=== PATIENT | female | born 2000 | race Caucasian/White ===

== ENCOUNTER 2023-08-31 20:56 | Emergency (ER) | payer OTHER, SELFPAY ==
[2023-08-31 21:00] VITALS: BMI 18.3
[2023-08-31 21:09] VITALS: BP 137/81
[2023-08-31 21:10] VITALS: BP 137/87
--- NOTE | 2023-08-31 21:13 | ED.GENMED ---
History of Present Illness
General
Chief Complaint: Substance Abuse
Source: patient and police
Exam Limitations: none
Time Seen by Provider: 08/31/23 21:03
Nursing documentation reviewed up to this point in time: agreed with
Travel History
Have you had any contact with someone who has COVID-19?: No
Do you have any symptoms of coronavirus? Fever > 100 degrees, chills, cough, shortness of breath, sore throat, loss of taste or smell, muscle aches, or headache?: No
History of Present Illness
History of Present Illness:
23-year-old female with past medical history of polysubstance use presents to the emergency room from [facility] for evaluation of opioid withdrawal. Patient reports that her last use of heroin was 12 AM�21 hours prior to presentation. She says she
has also occasionally used cocaine and did use some cocaine last night as well. She primarily injects. She says that today she started to experience severe withdrawal symptoms including chills, shakes, diarrhea, rhinorrhea, anxiety, nausea.
Brought to the emergency room for assessment. She says she has had success with buprenorphine in the past�she says that she was previously 6 months clean.
Review of Systems
Review of Systems
All Other Systems: ROS reviewed and negative except as documented in HPI and ROS
Constitutional: Reports chills; Denies fever
EENT: Reports runny nose; Denies sore throat
Respiratory: Denies cough or trouble breathing
Cardiac: Denies chest pain or palpitations
ABD/GI: Reports nausea and diarrhea; Denies abdominal pain
: Denies flank pain
Musculoskeletal: Reports muscle pain (Myalgias); Denies neck pain or back pain
Neurological: Reports headache; Denies weakness or numbness
Psychiatric: Reports anxiety
Phy Exam
Physical Exam
Physical Exam:
General: Awake, alert, anxious appearing
Head: Normocephalic, atraumatic
Eyes: Conjunctiva normal, pupils equal round and reactive to light bilaterally
Nose: Copious rhinorrhea
Throat: Airway intact, handling secretions
Neck: Trachea midline, supple without meningismus
Lungs: Clear to auscultation bilaterally, no wheezing, rales, rhonchi
Heart: Regular rate and rhythm, no murmurs, gallops, or rubs
Abd: Soft, non distended, nontender
Neuro: Cranial nerves grossly intact, speech fluid
Skin: Piloerection; track dowd on the neck and the arms
Extremities: Warm and well-perfused
Scores
COW Clinical Opiate Withdrawal Scale
Resting Pulse Rate: 80 or below
Sweating-over past 30min not from room temp or activity: Flushed or observable moistness on face
Restlessness-observation during assessment: Reports difficulty sittin
Pupil Size: Pupils possibly larger than normal for room light
Bone or Joint Aches: Mild diffuse discomfort
Runny Nose or Tearing-not accounted for by cold/allergies: Nose running or tearing
GI Upset-over last 30min: Nausea or loose stool
Tremor-observation of outstretched hands: Tremor can be felt, but not observed
Yawning-observation during assessment: No yawning
Anxiety or Irritability: Patient reports increasing irritability or anxiousness
Gooseflesh Skin: Piloerrection of skin can be felt or hairs standing up on arms
Score: 14
Withdrawal Severity: Moderate Withdrawal, consider starting Suboxone
Heart Failure Risk
Heart Failure Risk Score: Not Applicable
Heart Score for Chest Pain Patients
STEMI patient?: Not applicable
Withdrawal Assessment of Alcohol
Withdrawal Assessment Completed?: Not applicable
Course
Orders/Labs/Results
Orders:
Orders
08/31/23 21:10
Drug Screen, Urine [Urine Drug Abuse Screen] Urgent
0.9% Sodium Chloride 1000 ml [Nss] 1,000 ml IV BOLUS
Buprenorphine [Subutex] 4 mg SL NOW ONE
Ondansetron Injectable [Zofran] 4 mg IV NOW STA
Test Result ONCE
08/31/23 22:46
Alcohol Urgent
Complete Blood Count/With Diff Urgent
Comprehensive Metabolic Panel Urgent
HCG, Serum Qualitative Screen Urgent
08/31/23 23:29
Buprenorphine [Subutex] 4 mg SL NOW ONE
Abnormal Lab Results
08/31/23
22:46
WBC 14.0 H 10^3/uL
(4.8-10.8)
RBC 3.97 L 10^6/uL
(4.20-5.40)
Hgb 11.9 L g/dL
(12.0-16.0)
Hct 34.1 L %
(37.0-47.0)
Abs Immat Gran (auto) 0.1 H 10^3/uL
(0-0.05)
Absolute Neuts (auto) 12.8 H 10^3/uL
(1.4-6.5)
Absolute Lymphs (auto) 1.0 L 10^3/uL
(1.2-3.4)
Neutrophils % 91.4 H %
(42.2-75.2)
Lymphocytes % 7.0 L %
(20.5-51.1)
Monocytes % 1.1 L %
(1.7-9.3)
BUN 18 H mg/dl
(7-17)
Glucose 126 H mg/dl
(70-99)
Calcium 10.6 H mg/dl
(8.4-10.2)
Total Protein 8.3 H g/dl
(6.3-8.2)
08/31/23 22:46
08/31/23 22:46
Vital Signs
Initial and Last Documented VS:
Initial Vital Signs
Temp Pulse Resp BP Pulse Ox
35.8 C L 54 16 137/81 100
08/31/23 21:08/31/23 21:09 08/31/23 21:09 08/31/23 21:09 08/31/23 21:09
Last Documented Vital Signs
Temp Pulse Resp BP Pulse Ox
35.8 C L 54 16 137/87 100
08/31/23 21:09 08/31/23 21:09 08/31/23 21:09 08/31/23 21:10 08/31/23 22:30
MDM/Problems Addressed
Differential Diagnosis Includes:
Opioid withdrawal
MDM/Problems Addressed:
23-year-old female presents from [facility] for opioid withdrawal�last used heroin 21 hours prior to presentation. Very mildly hypothermic and bradycardic. Vital signs otherwise normal. Exam as above. Consistent with opioid withdrawal. COWS score
14. Will start on Suboxone. Will send basic labs. Zofran for nausea. Provide IV fluids. Discussed with [facility]�if withdrawal can be managed here will coordinate with [facility] for further management.
Labs reviewed: CBC shows leukocytosis likely reactive with recent nausea and vomiting. CMP unremarkable. hCG negative. Clinical reassessment patient symptoms improved but still having some mild opiate withdrawal symptoms. Provide an additional
dose of buprenorphine here.
Clinical reassessment after medications patient is feeling much better. She is sleeping comfortably. COWS score 0. Stable for discharge. I spoke with the nurse at the [facility] will write a prescription for buprenorphine which they can continue at
[facility]. Patient comfortable with this plan. Spoke about return precautions all questions answered.
Chronic conditions affecting care:
Opioid use
*Pulse Oximetry
Patient hypoxic: no
*Critical Care Note
Total Time (30-74mins, 75-104mins- exclusive of procedures): Not Applicable
Data Reviewed
Source: patient and police
Patient Management
Discussion with other providers: Other ([facility])
ED Attending Note
-
Portions of this chart may have been created with voice recognition software.� Occasional wrong word or��sound alike� substitutions may have occurred due to the inherent limitations of voice recognition software.
Discharge Plan
Departure
Patient Disposition: Home (Routine Discharge)
Date of Disposition: 08/31/23
Time of Disposition: 23:27
Patient with high blood pressure during this ER visit?: No
Discharge Problem:
Opioid withdrawal
Instructions: Opioid use disorder
Prescriptions:
New
buprenorphine HCl 8 mg tablet, sublingual
8 mg sublingual BID Qty: 14 0RF
Referrals:
[facility] [Family Provider] - Tomorrow
Activity Restrictions/Additional Instructions:
Thank you for visiting the Emergency Department at [facility].
1. Please schedule a follow up appointment as directed. Call first thing tomorrow morning to make an appointment.
2. If indicated, please take your medications as instructed and indicated on discharge paperwork.
3. If any of your symptoms do not improve, or persist, or become more severe within 6-12 hours, please return to the emergency department for further care.
4. Please return to the emergency department if you develop a headache, neck pain/stiffness, fever greater than 100.4F, chest pain, shortness of breath, persistent nausea, vomiting, slurred speech, difficulty walking, numbness/tingling, weakness,
signs of infection or any other symptoms that are worrisome to you.
Please call [phone] if you have any questions.
Interventions
Interventions:
*Risk Screen - Suicide Last Done: 08/31/23 21:00
*General Assessment Last Done: 08/31/23 21:00
*Neglect/Abuse Screening Last Done: 08/31/23 21:00
ED- Fall Risk Assessment Last Done: 08/31/23 21:00
*ED COVID-19 Vaccine History Last Done: 08/31/23 21:00
ED-Psychological Assessment Last Done: 08/31/23 21:12
Discharge Date and Time
Print Language: [email or web address]
[2023-08-31] MEDS: SUBUTEX 4 MG SL ×2 (22:42→23:49)
[2023-08-31] MEDS: ZOFRAN 4 MG IV (22:42)
[2023-08-31] MEDS: NSS 1000 IV (22:43)
[2023-08-31 22:53] LABS: % Basophils 0.1 % (0-2); % Immature Granulocytes 0.4 % (0-0.5); % Monocytes 1.1 % (1.7-9.3); % Neutrophils 91.4 % (42.2-75.2); Absolute Immature Granulocytes 0.1 10^3/uL (0-0.05); Absolute Monocytes 0.2 10^3/uL (0.1-0.6); Absolute Neutrophils 12.8 10^3/uL (1.4-6.5); Hematocrit 34.1 % (37.0-47.0); Hemoglobin 11.9 g/dL (12.0-16.0); Mean Corp Hgb Conc. 34.9 g/dL (33.0-37.0); Mean Corpuscular Volume 85.9 fL (81.0-99.0); Nucleated Red Blood Cells % 0 %; Platelet Count 321 10^3/uL (130-400); Red Blood Cell Count 3.97 10^6/uL (4.20-5.40); Red Cell Dist. Width 13.7 % (11.5-14.5)
[2023-08-31 23:08] LABS: HCG, Serum Qualitative Screen Negative
[2023-08-31 23:11] LABS: ALT (SGPT) 17 U/L (0-35); AST (SGOT) 29 U/L (14-36); Albumin 4.6 g/dl (3.5-5.0); Alkaline Phosphatase 122 U/L (38-126); Blood Urea Nitrogen 18 mg/dl (7-17); Calcium 10.6 mg/dl (8.4-10.2); Carbon Dioxide 28 mmol/L (22-30); Chloride 101 mmol/L (98-107); Estimated Creatinine Clearance 93 ml/min; Glucose 126 mg/dl (70-99); Sodium 138 mmol/L (135-145); Total Bilirubin 0.4 mg/dl (0.2-1.3); Total Protein 8.3 g/dl (6.3-8.2); eGFR > 60.00
[2023-08-31 23:13] LABS: Alcohol None Detected
[2023-09-01 00:18] VITALS: BP 127/72
== END 2023-09-01 00:23 | disposition home or self-care (01) ==
LOC: EMR 20:56
PROVIDERS: EMERGENCY PHYSICIAN Emergency Medicine
DX: F11.23 Opioid dependence with withdrawal (principal)
CPT/HCPCS: 99284; 96374; 96361; 80053; 82077; 84703; 85025